=== PATIENT | female | born 1935 | race Caucasian/White ===

== ENCOUNTER → 2016-08-09 | Outpatient (CLI) | payer OTHER, MEDICARE ==
[~2016-08-09] MED LIST: B12 PO; CARAFATE1 G PO; CARVEDILOL6.25 MG PO; FISH OIL 1,2001 EAC1 PO; FLEXERIL10 MG PO; FOSAMAX PO; IBUPROFEN800 MG PO; PRILOSEC40 MG PO; PRINIVIL10 MG PO; VAGIFEM10 MCG VG; VITAMIN D34000 UNIT PO
--- NOTE | ~2016-08-09 | MY11 ---
[facility] A Service of [facility] RADIOLOGY TEXT RESULTS PATIENT: NEVAEH CONNER LOCATION: [facility] : 37 UNIT #: [id number] AGE: [address]: Meggan Teresa MD SEX: F ORDER DR: [id number] [address] [address] [id number] O MR#: [id number] Acc #: [id number] NAME: NEVAEH CONNER : 1935 SEX: F STUDY DATE/TIME: 08/09/2016 10:51 UNIT: [facility] ROOM: STUDY DESCRIPTION: MY Mammogram Screening Dig [place] Attending Physician: Meggan Teresa M.D. Referring Physician: Meggan Teresa M.D. Ordering Physician: Meggan Teresa M.D. Primary Care Physician: Meggan Teresa M.D. MEDICAL IMAGING REPORT This report is preliminary unless electronic signature is present. EXAM Digital screening mammogram 08/09/2016 HISTORY 80-year-old woman no risk elevation, prior left breast biopsy. Annual screen. COMPARISON Mammograms 02/05/2013, 05/19/2014, 06/27/2015. FINDINGS Digital imaging of each breast was completed utilizing screening protocol. Review includes FDA-approved CAD device. Breast parenchyma remains dense with a rather dense nodular parenchymal pattern in each breast. There is a dominant mass, increasing in size projecting in the lower inner quadrant of the left breast. This measures almost 3 cm in greatest dimension at this time. Probable adjacent smaller nodule projects posterior and medial to the dominant mass. I expect these represent cysts. Additional left breast imaging is however indicated. This would include high-resolution spot compression views along with a true lateral projection and left breast ultrasound. I see no interval occurring microcalcifications and no suspicious architectural distortion. IMPRESSION Incomplete mammographic evaluation. Additional left breast imaging is recommended. See complete report with recommendations. Patients over the age of 40 are entered into a reminder system with target due date for the next mammogram. A result letter will also be sent to the patient. [facility] A Service of [facility] RADIOLOGY TEXT RESULTS PATIENT: NEVAEH CONNER LOCATION: [facility] : 37 UNIT #: [id number] AGE: [address]: Meggan Teresa MD SEX: F ORDER DR: BIRADS: 0 Incomplete: Additional left breast imaging recommended. STAT * RESULT Dictated by... Bill Gonzales M.D. THIS IS AN ELECTRONICALLY VERIFIED REPORT Bill Gonzales M.D. at 08/09/2016 12:45 PM YAZMIN/rasta TD: 08/09/2016 11:00 JOB #: [id number] MEDICAL IMAGING REPORT Page 1 of 1
== END | disposition home or self-care (01) ==
LOC: SMAM 08-06 10:45
DX: Z12.31 Encounter for screening mammogram for malignant neoplasm of breast (principal); Z98.890 Other specified postprocedural states
CPT/HCPCS: G0202

== ENCOUNTER → 2016-08-22 | Outpatient (CLI) | payer OTHER, MEDICARE ==
--- NOTE | ~2016-08-22 | US24 ---
[facility] A Service of [facility] & [facility] RADIOLOGY TEXT RESULTS PATIENT: NEVAEH CONNER LOCATION: [facility] : 37 UNIT #: [id number] AGE: [address]: Meggan Teresa MD SEX: F ORDER DR: [id number] [facility] [address] [place], [place] [address] [id number] O MR#: [id number] Acc #: [id number] NAME: NEVAEH CONNER. : 1935 SEX: F STUDY DATE/TIME: 08/22/2016 8:40 UNIT: [facility] ROOM: STUDY DESCRIPTION: US Breast Unilateral Attending Physician: Meggan Teresa M.D. Ordering Physician: Meggan Teresa M.D. Primary Care Physician: Meggan Teresa M.D. MEDICAL IMAGING REPORT This report is preliminary unless electronic signature is present EXAM Targeted ultrasound left breast 08/22/2016 FINDINGS Please see Additional views left breast for results. BIRADS: 2 Benign finding Dictated by... Dony Helms M.D. THIS IS AN ELECTRONICALLY VERIFIED REPORT Dony Helms M.D. at 08/22/2016 4:01 PM Isi TD: 08/22/2016 09:56 JOB #: [id number] MEDICAL IMAGING REPORT Page 1 of 1 COPY
--- NOTE | ~2016-08-22 | MY24 ---
[facility] A Service of [facility] & [facility] RADIOLOGY TEXT RESULTS PATIENT: NEVAEH CONNER LOCATION: [facility] : 37 UNIT #: [id number] AGE: [address]: Meggan Teresa MD SEX: F ORDER DR: [id number] [facility] [address] [place], [place] [address] [id number] O MR#: [id number] Acc #: [id number] NAME: NEVAEH CONNER. : 1935 SEX: F STUDY DATE/TIME: 08/22/2016 8:07 UNIT: [facility] ROOM: STUDY DESCRIPTION: [facility] W/ CAD UNI LT Attending Physician: Meggan Teresa M.D. Ordering Physician: Meggan Teresa M.D. Primary Care Physician: Meggan Teresa M.D. MEDICAL IMAGING REPORT This report is preliminary unless electronic signature is present EXAM Additional views of the left breast and a targeted left breast ultrasound, 08/22/2016. INDICATION 80-year-old female recalled for probable cysts in the left breast. The patient denies any change in either breast. History of breast biopsy 40 years ago on the left. TECHNIQUE Compression CC, compression MLO, and true lateral views of the left breast were obtained and reviewed with an approved CAD device. Targeted ultrasound of the lower inner quadrant left breast was also performed. COMPARISON Mammograms 08/09/2016, 06/27/2015, 06/03/2014. FINDINGS MAMMOGRAPHIC FINDINGS: The nodular masses in the left breast persist on the additional spot compression views. The larger measures up to about 2.7 cm and the smaller measures up to about 1.7 cm. No suspicious microcalcifications. Targeted ultrasound was thereafter performed. ULTRASOUND FINDINGS: Imaging of the lower inner hemisphere left breast was performed in the area of the masses on the patient's mammogram. There are 2 cysts with benign features in the lower inner quadrant. The first at 6 o'clock measures about 1.6 x 0.8 cm and the second adjacent to it measures up to nearly 3 cm. Imaging findings are concordant with mammography. No suspicious features with respect to either cyst on ultrasound. Incidental mild ductal ectasia on the left without intraluminal filling defect. The patient denies any history of nipple discharge or other symptoms in the left breast. [facility] A Service of [facility] RADIOLOGY TEXT RESULTS PATIENT: NEVAEH CONNER LOCATION: [facility] : 39 UNIT #: [id number] AGE: [address]: Meggan Teresa MD SEX: F ORDER DR: The patient reports a history of cysts. Imaging features today are benign. Absent new or worsening symptoms in either breast, the patient should return for a repeat mammogram in 1 year. Findings and recommendations were discussed with the patient. She voiced understanding and agreement. IMPRESSION Mammography and ultrasound confirmed 2 benign cysts in the lower inner quadrant. Imaging findings are concordant with mammography. The largest measures up to nearly 3 cm. Return to annual screening recommended. See discussion above. Patients over the age of 40 are entered into a reminder system with target due date for the next mammogram. A result letter will also be sent to the patient. BIRADS: 2 Benign finding. Dictated by... Dony Helms M.D. THIS IS AN ELECTRONICALLY VERIFIED REPORT Dony Helms M.D. at 08/22/2016 4:01 PM SHIRA/reji TD: 08/22/2016 09:55 JOB #: [id number] MEDICAL IMAGING REPORT Page 1 of 1 COPY
== END | disposition home or self-care (01) ==
LOC: CMAM 07:44
DX: R92.8 Other abnormal and inconclusive findings on diagnostic imaging of breast (principal); N60.12 Diffuse cystic mastopathy of left breast
CPT/HCPCS: 76641; G0206

== ENCOUNTER → 2016-09-02 | Outpatient (CLI) | payer OTHER, MEDICARE ==
--- NOTE | ~2016-09-02 | ST ---
Unit #: [id number] #: [id number] Patient: NEVAEH CONNER [id number] [address] [address] [id number] O MR#: [id number] NAME: NEVAEH CONNER. : 1935 SEX: F STUDY DATE/TIME: UNIT: [facility] ROOM: STUDY DESCRIPTION: Stress Test Attending Physician: Evita Mann M.D. Referring Physician: Evita Mann M.D. Primary Care Physician: Meggan Teresa M.D. CARDIOLOGY REPORT EXAM Exercise Cardiolite Stress Test DESCRIPTION Baseline EKG - normal sinus rhythm with ventricular rate 62 beats/minute, left atrial abnormality, slow R wave progression. The patient walked on the treadmill for 6 minutes utilizing Lisandro protocol achieving a workload of 7.0 METs. The patient reached 100% of maximum target heart rate at 144 beats/minute with a hypertensive blood pressure response of 202/92 mmHg. EKG during the test was equivocal to baseline. No acute ischemic changes. Patient had some nonspecific ST-T wave abnormalities in inferior lateral leads. There was a rare premature ventricular complex. IMPRESSION 1. Functional class III with a workload of 7.0 METs. 2. The patient walked for 6 minutes achieving 100% of maximum target heart rate at 144 beats/minute with a hypertensive blood pressure response of 202/92 mmHg. 3. It is noted the patient's blood pressure decreased down to 171/89 mmHg at the end of recovery phase. 4. EKG during the test shows some nonspecific ST-T wave abnormalities, a rare PVC. 5. The patient had no complaints of chest pain, palpitations or dizziness, had increased shortness of breath and fatigueness which resolved in recovery phase. 6. Cardiolite was injected at maximum target heart rate. Radionuclide test pending. Please correlate with nuclear images. Dictated by... Zuleika Sotelo A.P.R.N. for Ale Pelletier/haven TD: 09/02/2016 09:43 JOB #: [id number] Unit #: [id number] #: [id number] Patient: NEVAEH CONNER CARDIOLOGY REPORT Page 1 of 1 X Zuleika Sotelo APRN CARDIOLOGY REPORT
--- NOTE | ~2016-09-02 | TH ---
Unit #: [id number] #: [id number] Patient: NEVAEH CONNER [id number] [facility]. [address] [address] [id number] O MR#: [id number] NAME: NEVAEH CONNER : 1935 SEX: F STUDY DATE/TIME: 09/02/2016 UNIT: [facility] ROOM: STUDY DESCRIPTION: Exercise stress test - nuclear Attending Physician: Evita Mann M.D. Referring Physician: Evita Mann M.D. Primary Care Physician: Meggan Teresa M.D. CARDIOLOGY REPORT PROCEDURE PERFORMED Exercise Cardiolite stress test - Nuclear portion. PROCEDURE Using technetium 99m-labeled Cardiolite, rest and stress SPECT images were obtained. Multiple SPECT images were obtained in various views, including horizontal and vertical long axis and short axis views of the left ventricle. Images were obtained by gated SPECT method. The patient was administered 11.03 mCi of Cardiolite at rest. The patient was administered 33.2 mCi of Cardiolite at peak exercise. Total exercise time is 6 minutes. On the stress images, there is normal perfusion noted. The rest images show normal perfusion. Comparing the rest and stress images, there is no stress-induced ischemia noted. The left ventricular ejection fraction is calculated to be 71%. There is no focal wall motion abnormality seen. CONCLUSION 1. No stress-induced ischemia noted. 2. The left ventricular ejection fraction is calculated to be 71%. 3. There is no focal wall motion abnormality seen. 4. Normal exercise Cardiolite stress test. Dictated by... Ale Pelletier/almaz TD: 09/02/2016 14:27 JOB #: [id number] CARDIOLOGY REPORT Page 1 of 1 X Evita Mann MD <ELECTRONICALLY SIGNED> 10/31/16 1524 CARDIOLOGY REPORT
== END | disposition home or self-care (01) ==
LOC: CNUC 07:08
DX: R07.9 Chest pain, unspecified (principal)
CPT/HCPCS: 78452; 93017; A9500